=== PATIENT | female | born 1970 | race Caucasian/White ===

== ENCOUNTER → 2017-11-04 13:24 | Outpatient (CLI) | payer MEDICAID, SELFPAY ==
[2017-11-04 15:52] LABS: Absolute Lymphocyte Count 1.55 X10^3/ul (0.83-4.51); Absolute Neutrophil Count 2.3 X10^3/uL (2.0-7.7); Basophil# 0.06 X10^3/uL; Basophil% 1.3 % (0-1); Eosinophil# 0.17 X10^3/uL; Eosinophils% 3.8 % (0-5); Hematocrit 44.1 % (37-47); Lymphocyte # 1.55 X10^3/ul (4.0); Lymphocyte % 34.4 % (19-41); Mean Corp Hgb Conc 31.7 g/gl (32-36); Mean Corpuscular Hgb 27.7 pg (27.0-32.0); Mean Corpuscular Volume 87.2 fL (81-99); Mean Platelet Vol. 11.3 fl (6.2-12.0); Monocyte# 0.44 X10^3/uL; Monocyte% 9.8 % (0-10); Neutrophil # 2.27 X10^3/uL (2.7-7.7); Neutrophil % 50.5 % (47-70); Platelet Count 274 K/mm3 (150-450); RBC Distribution Width CV 13.7 % (11.6-14.6); RBC Distribution Width SD 43.5 fl (35.1-43.9); Red Blood Count 5.06 M/mm3 (4.2-5.4); White Blood Count 4.5 K/mm3 (4.4-11.0)
[2017-11-04 15:54] LABS: POSITIVE COUNT NO; POSITIVE DIFFERENTIAL NO; POSITIVE MORPHOLOGY NO
[2017-11-04 15:55] LABS: Thyroid Stim Hormone (TSH) 2.18 uIU/mL (0.358-3.74)
== END ==
PROVIDERS: Family Provider Family Medicine; PCP Family Medicine; Visit Provider Family Medicine
DX: R53.83 Other fatigue (principal)
CPT/HCPCS: 36415; 84443; 85025

== ENCOUNTER → 2019-12-09 | Outpatient (CLI) | payer BC, SELFPAY | END | disposition home or self-care (01) | LOC: LABSPEC 12-13 11:28 | PROVIDERS: PCP Family Medicine; Referring Provider Family Medicine; Visit Provider Family Medicine | DX: Z20.828 Contact with and (suspected) exposure to other viral communicable diseases (principal) | CPT/HCPCS: 87635; G2023; U0004 ==

== ENCOUNTER → 2020-08-02 09:23 | Outpatient (CLI) | payer BC, SELFPAY | PROVIDERS: PCP Family Medicine; Referring Provider Family Medicine; Visit Provider Family Medicine | DX: Z20.828 Contact with and (suspected) exposure to other viral communicable diseases (principal) | CPT/HCPCS: 87635; C9803; U0005; U0003 ==

== ENCOUNTER → 2020-09-19 06:39 | Outpatient (CLI) | payer BC, SELFPAY ==
--- NOTE | 2020-09-19 06:49 | MRI_ITS ---
STUDY: MRI BRAIN WITH AND WITHOUT CONTRAST REASON FOR EXAM: Female, 50 years old. BLURRED Vision, muscle CRAMPS, PARESTHESIAS, ? MS; HX MENINGIOMA, FAMILY HX OF MS TECHNIQUE: Standardized multiplanar fat and water weighted pulse sequences were obtained. 12 ml IV Dotarem was administered for the contrast portion of the examination. COMPARISON: CT head without contrast 12/24/2011. FINDINGS: No diffusion restriction throughout the brain parenchyma. No focal signal abnormalities throughout the brain parenchyma in all of the pulse sequences. Normal size of the ventricles and extra-axial spaces for the patient''s age. Normal white matter tracts of the supratentorial brain. Normal bilateral basal ganglia. Normal thalami. There is no extra-axial fluid accumulation. Normal flow voids within the major intracranial circulation suggesting patency by spin echo criteria. Normal venous enhancement. There is no enhancing intra-axial or extra-axial abnormality. Normal sella turcica, pituitary gland, infundibular stalk, optic chiasm and hypothalamus. Normal tectal plate and pineal gland. Normal midbrain, colton and medulla. Normal cerebellum. Normal basal cisterns. Normal bilateral temporal bones. Normal bilateral internal auditory canals. No demonstrated orbital abnormality, within the constraints of a routine brain study. Normal visualized paranasal sinuses. Normal calvarium and skull base. Normal visualized soft tissue structures. Normal visualized upper cervical spine. MRI/Brain W/WO Contrast IMPRESSION: Normal unenhanced and enhanced MRI of the brain. Electronically Signed: Nikos Morrison MD at 12:24 EST , Service support ,
== END ==
LOC: MRI 06:44
PROVIDERS: PCP Family Medicine; Referring Provider Family Medicine; Visit Provider Family Medicine
DX: G37.9 Demyelinating disease of central nervous system, unspecified (principal); H53.8 Other visual disturbances; R25.2 Cramp and spasm; R32 Unspecified urinary incontinence; R20.2 Paresthesia of skin
CPT/HCPCS: 70553; A9575

== ENCOUNTER → 2020-09-25 11:28 | Outpatient (CLI) | payer BC, SELFPAY ==
[2020-09-25 15:02] LABS: Absolute Lymphocyte Count 1.98 X10^3/uL (0.83-4.51); Absolute Neutrophil Count 3.4 X10^3/uL (2.0-7.7); Basophil# 0.03 X10^3/uL; Basophil% 0.5 % (0-1); Eosinophil# 0.23 X10^3/uL; Eosinophils% 3.7 % (0-5); Hematocrit 34.9 % (37-47); Hemoglobin 11.6 g/dL (12.0-15.0); Lymphocyte # 1.98 X10^3/ul (4.0); Lymphocyte % 32.1 % (19-41); Mean Corp Hgb Conc 33.2 g/dL (32-36); Mean Corpuscular Hgb 30.9 pg (27.0-32.0); Mean Corpuscular Volume 93.1 fL (81-99); Mean Platelet Vol. 10.9 fl (6.2-12.0); Monocyte# 0.56 X10^3/uL; Monocyte% 9.1 % (0-10); NRBC Flagged by Analyzer 0 % (0-5); Neutrophil # 3.36 X10^3/uL (2.7-7.7); Neutrophil % 54.4 % (47-70); Platelet Count 258 K/mm3 (150-450); RBC Distribution Width CV 14.9 % (11.6-14.6); RBC Distribution Width SD 47.5 fl (35.1-43.9); Red Blood Count 3.75 M/mm3 (4.2-5.4); White Blood Count 6.2 K/mm3 (4.4-11.0)
[2020-09-25 15:03] LABS: Erythrocyte Sedimentation Rate 7 mm/hr (0-30)
[2020-09-25 15:13] LABS: Vitamin B12 455 pg/mL (211-911); Vitamin D,25 Hydroxy 20.4 ng/mL
[2020-09-25 15:24] LABS: ALB/GLOB Ratio 1.1 RATIO (0.9-2.4); AST(SGOT) 16 U/L (15-37); Alanine Aminotransfer ALT/SGPT 25 U/L (13-56); Albumin, Serum 3.7 g/dL (3.2-5.0); Alkaline Phosphatase 71 U/L (45-117); Anion Gap 5 (5-15); BUN 17 mg/dL (7-18); BUN/Creat Ratio 27.6 RATIO (10-20); CRP 5.52 mg/L (0.0-3.0); Calcium,Total 9.1 mg/dL (8.5-10.1); Chloride 105 mmol/L (98-107); Cholesterol 187 mg/dL (200); Creatinine, Serum 0.62 mg/dL (0.55-1.02); EST Glomerular Filtration Rate 110 mL/min (>60); Est Glom Filt Rate - Afr Amer 133 mL/min (>60); Globulin 3.3 g/dL (2.2-4.2); Glucose 77 mg/dL (74-106); High Density Lipoprotein 70 mg/dL; Potassium 3.5 mmol/L (3.5-5.1); Sodium Level 140 mmol/L (136-145); T4 Free Direct 0.93 ng/dL (0.76-1.46); Thyroid Stim Hormone (TSH) 2.47 uIU/mL (0.358-3.74); Triglycerides 39 mg/dL; Very Low Density Lipoprotein 8 mg/dL (5-40)
[2020-09-27 20:59] LABS: ANTINUCLEAR ANTIBODIES DIRECT Negative (Negative)
== END ==
PROVIDERS: PCP Family Medicine; Visit Provider Family Medicine
DX: Z00.00 Encounter for general adult medical examination without abnormal findings (principal); R53.83 Other fatigue; R20.2 Paresthesia of skin; R42 Dizziness and giddiness; M25.50 Pain in unspecified joint
CPT/HCPCS: 36415; 80053; 80061; 82306; 82607; 84439; 84443; 85025; 85652; 86038; 86140; 86225; 86235

== ENCOUNTER 2021-07-30 14:10 | Outpatient (CLI) | payer BC, SELFPAY | END 2021-07-30 23:59 | disposition short-term general hospital (02) | PROVIDERS: PCP Family Medicine; Visit Provider Family Medicine | DX: N39.0 Urinary tract infection, site not specified (principal); R05.9 Cough, unspecified | CPT/HCPCS: 87086; 87088; 87635; U0003; U0005 ==

== ENCOUNTER → 2023-03-11 | Outpatient (CLI) | payer BC, MEDICAID, SELFPAY ==
[2023-03-11 15:24] LABS: Color, Urine Yellow (Yellow); Glucose, Dipstick Normal (Normal); Ketone-Dipstick Negative (Negative); Leukocyte Esterase-Dipstick Negative /ul (Negative); Nitrite-Dipstick Negative (Negative); Occult Blood-Urine Negative /ul (Negative); Protein-Dipstick Negative (Negative); Specific Gravity, Urine 1.025 (1.002-1.030); Urine Bilirubin Dipstick Negative (Negative); Urine Clarity Clear (Clear); Urine Urobilinogen Normal (Normal)
[2023-03-11 15:56] LABS: AST(SGOT) 22 U/L (15-37); Alanine Aminotransfer ALT/SGPT 35 U/L (13-56); Albumin, Serum 3.4 g/dL (3.2-5.0); Alkaline Phosphatase 97 U/L (45-117); Anion Gap 4 (5-15); BUN 13 mg/dL (7-18); BUN/Creat Ratio 17.1 RATIO (10-20); Calcium,Total 9.2 mg/dL (8.5-10.1); Chloride 107 mmol/L (98-107); Creatinine, Serum 0.76 mg/dL (0.55-1.02); EST Glomerular Filtration Rate 85 mL/min (>60); Est Glom Filt Rate - Afr Amer 103 mL/min (>60); Globulin 3.5 g/dL (2.2-4.2); Glucose 103 mg/dL (74-106); Magnesium 1.8 mg/dL (1.6-2.6); Potassium 3.9 mmol/L (3.5-5.1); Protein, Total 6.9 g/dL (6.4-8.2); Sodium Level 143 mmol/L (136-145); Thyroid Stim Hormone (TSH) 1.48 uIU/mL (0.358-3.74)
== END | disposition home or self-care (01) ==
LOC: BFHLAB 11:54
PROVIDERS: PCP Family Medicine; Referring Provider Family Medicine; Visit Provider Family Medicine
DX: R60.9 Edema, unspecified (principal); N39.0 Urinary tract infection, site not specified; E87.1 Hypo-osmolality and hyponatremia; R79.0 Abnormal level of blood mineral
CPT/HCPCS: 36415; 80053; 81002; 83735; 84443; 87086; 87088

== ENCOUNTER → 2024-11-29 | Outpatient (CLI) | payer BC, SELFPAY ==
[2024-11-29 18:13] LABS: ALB/GLOB Ratio 1.6 RATIO (0.9-2.4); AST(SGOT) 24 U/L (<=31); Alanine Aminotransfer ALT/SGPT 22 U/L (<=34); Albumin, Serum 4.5 g/dL (3.5-5.0); Alkaline Phosphatase 92 U/L (35-104); Anion Gap 10 (5-15); BUN 23 mg/dL (4-19); BUN/Creat Ratio 33.7 RATIO (10-20); CPK Total, Creatine Kinase 100 U/L (24-195); Calcium,Total 9.9 mg/dL (7.6-11.0); Carbon Dioxide 27.6 mmol/L (21.0-32.0); Chloride 101 mmol/L (98-108); Creatinine, Serum 0.68 mg/dL (0.70-1.20); EST Glomerular Filtration Rate 104 (>60); Globulin 2.9 g/dL (2.2-4.2); Glucose 95 mg/dL (70-99); Potassium 3.5 mmol/L (3.3-5.1); Protein, Total 7.3 g/dL (5.9-8.4); Sodium Level 139 mmol/L (133-145); Total Bilirubin 0.26 mg/dL (0.00-1.30)
== END | disposition home or self-care (01) ==
LOC: MTLAB 16:16
PROVIDERS: PCP Family Medicine; Referring Provider Family Medicine; Visit Provider Family Medicine
DX: R25.2 Cramp and spasm (principal)
CPT/HCPCS: 36415; 80053; 82550; 83735; 84443

== ENCOUNTER → 2025-07-13 | Outpatient (CLI) | payer BC, SELFPAY ==
--- NOTE | 2025-07-13 11:37 | RAD_ITS ---
PROCEDURE: RIBS UNI MIN 3V W/PA CHEST 07/13/2025 REASON FOR EXAM: PAIN IN LEFT RIBS AND BACK TECHNIQUE: Procedure Code: RADRIB Modality: DX Procedure: RIBS UNI MIN 3V W/PA CHEST COMPARISON: None FINDINGS: Chest with left ribs five views. There is hardware fusion in the mid and lower thoracic region. Dextroscoliosis is noted. Heart size is within normal limits. There is blunting of the costophrenic angle on the right. Surgical clips are noted in the right upper quadrant. There is no visible rib fracture. RAD/Ribs Uni Min 3V w/PA Chest IMPRESSION: There is no visible rib fracture. Reading Location: [facility]
== END | disposition home or self-care (01) ==
LOC: MTRAD 11:35
PROVIDERS: PCP Family Medicine; Referring Provider Nurse Practitioner Family; Visit Provider Nurse Practitioner Family
DX: M54.6 Pain in thoracic spine (principal)
CPT/HCPCS: 71101